=== PATIENT | female | born 2005 | race Caucasian/White ===

== ENCOUNTER 2023-02-25 08:34 | Emergency (ER) | payer OTHER, SELFPAY ==
[2023-02-25 08:42] VITALS: BP 122/77; PULSE 81; RESP 16; TEMP 36.8; O2SAT 99
--- NOTE | 2023-02-25 08:48 | ED.GENADULT ---
HPI - General Adult General Chief complaint: Upper Respiratory Infection Stated complaint: Fever/Cough/Rash Source: patient, RN notes reviewed and old records reviewed Mode of arrival: ambulatory Limitations: no limitations History of Present Illness HPI narrative: 17-year-old female presents to [facility] with complaint of sore throat and fever that started this a.m. Patient also concerned for rash that is intermittent. Patient states gets swelling and red dumont and bruising on legs for the last several weeks. Patient was seen in another urgent care and told to follow up and take Benadryl. Patient states is not improving. Patient has no rash at this time. MD complaint: sore throat Onset (ago): day(s) (1) Related Data Home Medications Medication Instructions Recorded Confirmed No Home Medications 02/25/23 02/25/23 Allergies Allergy/AdvReac Type Severity Reaction Status Date / Time No Known Allergies Allergy Unverified 06/11/16 19:32 Review of Systems Constitutional: Constitutional: Reports no additional constitutional complaints, Denies body ache(s), Denies chills, Denies fatigue, Reports fever(s) and Denies headache(s) Eyes: Eyes: Reports no additional eye complaints and Denies blurry vision ENT: Reports system reviewed and no additional complaints, except as documented, Denies vertigo, Denies dizziness, Denies ear discharge, Denies otalgia, Denies facial pain, Denies headache(s), Denies nasal congestion, Denies nasal discharge, Denies sinus pain, Denies sinus pressure and Reports sore throat Cardiovascular: Cardiovascular: Reports no additional cardiovascular complaints, Denies chest pain, Denies chest pain at rest, Denies rapid heart rate and Denies dyspnea Respiratory: Respiratory: Reports no additional respiratory complaints, Denies chest congestion, Denies cough, Denies pain on inspiration, Denies pain with cough and Denies dyspnea Gastrointestinal: Gastrointestinal: Denies abdominal pain, Denies diarrhea, Denies nausea and Denies vomiting Integumentary/Breasts: Skin/Breast: Reports rash Comments: Rash not present at this visit. Neurologic: Reports system reviewed and no additional complaints, except as documented, Denies vertigo, Denies dizziness and Denies headache(s) Endocrine: Endocrine: Denies fatigue PMFSH Comments At the time of my signature, I reviewed and agree with the nursing past medical, surgical, social, and family history. There is no relevant family history pertinent to the patient complaint. Exam Const: General: cooperative, healthy appearing, no acute distress and well nourished Nutritional Appearance: well nourished Orientation/consciousness: patient oriented x3 Limitations: no limitations HENMT: Head: normal to inspection and normocephalic Ears: external ears normal, TM's normal bilaterally, mastoids normal and Abnormal EAC present Face/Nose/Sinus: normal facial exam Face and sinus: normal facial exam Mouth: Yes Normal oral and palatal mucosa present, Yes oropharynx normal and Yes moist mucous membranes Throat: tonsils normal, uvula midline, posterior oropharynx abnormal erythema and no uvular edema Eyes: General: appearance normal, both eyes and all related structures Sclera: sclerae normal Pupils: Equal, round and reactive pupils present Resp: Effort & Inspection: normal respiratory effort, able to speak in complete sentences, no audible wheezes, no cough, no respiratory distress and no retractions Auscultation: clear to auscultation bilaterally, no crackles, no rales, no rhonchi and no wheezes Cardio: Rate: regular rate Rhythm: regular rhythm Skin: General skin exam: normal color and no rashes or lesions noted Neuro: General: patient oriented x3 Cranial nerves: Yes Equal, round and reactive pupils present Psych: Appearance: grossly normal Mental Status: mental status grossly normal Speech and movement: Normal speech and movement present Affect: normal aff
== END 2023-02-25 09:07 | disposition home or self-care (01) ==
PROVIDERS: Emergency Provider Registered Nurse; PCP Family Medicine
DX: J02.9 Acute pharyngitis, unspecified (principal)
CPT/HCPCS: 87081; 87880; 99213; G0463

== ENCOUNTER 2025-01-02 13:22 | Emergency (ER) | payer OTHER, SELFPAY ==
[2025-01-02 13:25] VITALS: BP 112/67; PULSE 69; RESP 20; TEMP 37; O2SAT 100
--- NOTE | 2025-01-02 13:29 | ED.URI ---
HPI - URI/Sore Throat General Chief Complaint: Upper Respiratory Infection Stated Complaint: URI symptoms Time Seen by Provider: 01/02/25 13:32 Source: patient and RN notes reviewed Mode of arrival: ambulatory Limitations: no limitations History of Present Illness HPI Narrative: 19-year-old female presents with concern of for one-month history of sinus drainage, sore throat, congestion, headache. She reports she has been taking [id number] medications without relief. She denies fever, body aches, chills, sweats. MD elicited complaint: sore throat, rhinorrhea and nasal congestion Related Data Allergies Allergy/AdvReac Type Severity Reaction Status Date / Time No Known Allergies Allergy Verified 01/02/25 13:32 Review of Systems Review of Systems: CONSTITUTIONAL: Denies malaise, chills, sweats, or fever. EYES: Denies visual changes, redness, or discharge. ENT: Reports rhinorrhea, congestion, otalgia and sore throat. CARDIOVASCULAR: Denies chest pain, palpitations, or edema. RESPIRATORY: Denies cough. Denies dyspnea. GASTROINTESTINAL: Denies abdominal pain, nausea, vomiting, diarrhea SKIN: Denies rash or itching. MUSCULOSKELETAL: Denies myalgia. NEUROLOGIC: Reports headache. All systems reviewed & are unremarkable except as noted in HPI and below PMFSH Comments At time of signature, agree with nursing past medical, surgical, social and family history. There is no relevant family history pertinent to the presenting complaint Exam Narrative: GENERAL: Well-appearing, well-nourished, and in no acute distress. HEAD: Normocephalic EYES: PERRLA, conjunctivae clear ENT: Nares clear, turbinates edematous and erythematous. Mucous membranes moist. TM pearly lei with dull light reflex bilaterally; no tragal tenderness. Oropharynx not erythematous without lesions. Tonsils not enlarged and without exudate, no drooling, no hoarseness, no trismus, uvula midline. NECK: Supple. No lymphadenopathy CHEST: Clear to auscultation, breath sounds equal. No wheezing, rhonchi, rales, or stridor. No respiratory distress, speaks in full sentences. HEART: Regular rate and rhythm. No murmur heard. SKIN: Warm, dry, no rash. NEURO: Alert and oriented x3. PSYCH: Normal mood and affect Course Course Emergency Course: Patient is aware of diagnosis, understands and agrees to treatment plan. Anticipatory guidance given. Patient agrees to follow-up as directed and is aware of reasons to seek care at the emergency department. Portions of this record may have been created with voice recognition software Level of Care: Express Care Visit Vital Signs Vital signs: Reviewed. MDM - URI/Sore Throat MDM Narrative Medical decision making narrative: Differential diagnosis considered: Peoples virus, strep pharyngitis, allergic rhinitis, upper respiratory tract infection, sinusitis, rhinosinusitis, nasopharyngitis. viral pharyngitis, otitis media, otitis externa, pneumonia, bronchitis, viral cough syndrome, viral syndrome, and influenza. Exam findings show no acute concerns or changes; patient is non-toxic appearing and is in no distress. Patient is appropriate for outpatient treatment and follow-up. Lab Data Attestation: I reviewed the patient's lab results. Critical Care Time Critical Care Time Critical Care Time: No Discharge Plan Discharge Clinical Impression: Sinusitis Patient Disposition: Home Condition: Stable Instructions: Antibiotic Form, Sinusitis (ED) Additional Instructions: Take medication as prescribed Recommend antihistamine such as Benadryl at night time and Zyrtec or Lali during the day Also, recommend symptomatic treatment includes: rest, fluids, and increase humidity of the air at home. Recommend Acetaminophen as directed on the bottle to reduce fever, pain, headache. Avoid smoking/second-hand smoke. Please schedule a follow-up visit with your personal physician for further evaluation and treatment within 3-5days. If your symptoms persist, change or worsen significantly before you can contact your personal physician then please, without delay, go to the emergency department for further evaluation. Patient Language: Hebrew Prescriptions: New methylprednisolone [Medrol (Matias)] 4 mg tablets,dose pack See Rx Instructions .ROUTE .COMPLEX Qty: 21 0RF Rx Instructions: orally per package directions amoxicillin-pot clavulanate 875-125 mg tablet 1 tablet PO Q12H 10 Days Qty: 20 0RF Follow-up/Referrals: UNKNOWN,DOCTOR [Primary Care Provider] Time of Disposition: 13:37
--- OUTSIDE RECORDS SUMMARY | 2025-01-02 14:46 | XMS_ITS | Clinical Summary ---
Author Organization [facility] Address [address] [place] [address] Care Team Providers Care Extension Service Supervisor Name Role Phone Liliane Egan MD Primary Care Provider [phone] Source Comments [facility] [employer],non-owned Affiliates and Associated Physician Practices is amultiple site organization consisting of ambulatory clinics and hospital sitesin [place], [place], [place] and [place]. This disclosure is being madepursuant to the Care Everywhere program and may not contain all information available regarding this patient. Last updated 17.[facility] [employer] Allergies No known active allergies Medications * Be aware that medications may not be up to date on this document. Alwaysverify current medications with the patient. ibuprofen (MOTRIN) 200 MG tablet Take 400 mg by mouth every 6 hours as needed for Pain Active Active Problems Problem Noted Date Diagnosed Date Injury of finger of left hand 07/02/2016 Social History Tobacco Use Types Packs/Day Years Used Date Smoking Tobacco: Never Assessed Comments Unknown Sex and Gender Information Value Date Recorded Sex Assigned at Not on file Legal Sex Female 5:43 AM APPEALS MANAGER Gender Identity Not on file Sexual Orientation Not on file Plan of Treatment Health Maintenance Due Date Last Done Comments HIV SCREENING 10/07/2018 HPV VACCINE (1 - 3-dose series) 10/07/2018 CHLAMYDIA/GONORRHEA SCREENING 2019 MENINGOCOCCAL (Group B) VACC INE SHARED DECISION-MAKING (1 of 2 - Standard) 2019 HEPATITIS C SCREENING 10/03/2021 DTAP/TDAP/TD VACCINES (1 - Tdap) 10/07/2022 HEPATITIS B VACCINE (1 of 3 - 19+ 3-dose series) 10/07/2022 DEPRESSION SCREENING 03/07/2024 COVID-19 VACCINE (1 - 2023-2 5 season) 2024 INFLUENZA VACCINE (#1) 2024 ZOSTER VACCINE (1 of 2) 10/07/2053 HIB VACCINE Aged Out No longer eligi ble based on patient's age to complete this topic MENINGOCOCCAL GROUPS A/C/Y/W VACCINE Aged Out No longer eligible b ased on patient's age to complete this topic PNEUMOCOCCAL VACCINE Aged Out No long er eligible based on patient's age to complete this topic Insurance AETNA AETNA Care Teams Extension Service Supervisor Relationship Specialty Start Date End Date Liliane Egan MD PCP - General Pediatrics 06/15/16
--- OUTSIDE RECORDS SUMMARY | 2025-01-02 14:46 | XMS_ITS | Clinical Summary ---
Author Organization [facility] Address [address] [place] [address] Phone Care Team Providers Care Supervisor White Sugar Name Role Phone Provider, Not On File Primary Care Provider Unav ailable Allergies No known active allergies Medications HYDROcodone-aceta minophen (NORCO) 5-325 MG TabletIndications :S/P medial meniscectomy of left knee Take 1-2 Tablets by mouth every 4 hours as needed for Moderate or more severe pain (pain). 13 Tablet 2 Active Active Problems No known active problems Family History Medical History Relation Name Comments Cancer Father THYROID No Known Problems Mother Relation Name Status Comments Father Mother Social History Tobacco Use Types Packs/Day Years Used Date Smoking Tobacco: Never Smokeless Tobacco: Never Alcohol Use Standard Drinks/Week Comments Never 0 (1 standard drink = 0.6 oz pur e alcohol) Comments Unknown Sex and Gender Information Value Date Recorded Sex Assigned at Not on file Legal Sex Female 10:17 PM CDT Gender Identity Not on file Sexual Orientation Not on file Last Filed Vital Signs Vital Sign Reading Time Taken Comments Blood Pressure 111/58 04/01/2021 9:25 AM TELEGRAPHIC TYPEWRITER INSTALLER Pulse 60 04/01/2021 9:25 AM TELEGRAPHIC TYPEWRITER INSTALLER Temperature 36.4 C (97.5 F) 04/01/2021 9:25 AM TELEGRAPHIC TYPEWRITER INSTALLER Respiratory Rate 16 04/01/2021 9:25 AM TELEGRAPHIC TYPEWRITER INSTALLER Oxygen Saturation 100% 04/01/2021 9:25 AM TELEGRAPHIC TYPEWRITER INSTALLER Inhaled Oxygen Concentration - - Weight 65.8 kg (145 lb) 03/30/2021 3:00 PM TELEGRAPHIC TYPEWRITER INSTALLER Height 168.9 cm (5' 6.5) 03/30/2021 3:00 PM TELEGRAPHIC TYPEWRITER INSTALLER Body Mass Index 23.05 03/30/2021 3:00 PM TELEGRAPHIC TYPEWRITER INSTALLER Plan of Treatment Health Maintenance Due Date Last Done Comments Hepatitis C Virus (HCV) Screening 2003 TdaP Immunization 2003 Human Papillomavirus (HPV) Immunization (1 - 3-dose series) 10/07/2018 Meningococcal B Immunization (1 of 2 - Standard) 2019 Influenza Immunization (#1) 2024 SARS-COV-2 Immunization (3 - season) 2024 11/12/2020, 10/21/2020 Respiratory Syncytial Virus (RSV) Immunization (Adult) (1 - 1-dose 75+ series) 10/07/2078 Hepatitis B Immunization Completed , 02/26/2004, 2003, Additional history exists Polio (IPV) Immunization Discontinued , 02/26/2004, 2003 Measles Mumps Rubella (MMR) Immunization Discontinued 10/12/2004 Varicella Immunization Discontinued 10/12/2004 DTaP/Tdap/Td Immunization Discontinued 2004, 04/27/2004, 02/26/2004, Additional history exists Pneumococcal Immunization Combined Aged Out 01/29/2005, 08/06/2004, 04/27/2004, Additional history exists No longer eligible based on patient's age to complete this topic Meningococcal Immunization (ACWY) Completed 11/19/2020, 10/11/2017 Rotavirus Immunization Aged Out No lo nger eligible based on patient's age to complete this topic Insurance AETNA SOI A[employer] AETNA SOI Care Teams Supervisor White Sugar Relationship Specialty Start Date End Date Provider, Not On File [place] PCP - General 03/31/21
--- OUTSIDE RECORDS SUMMARY | 2025-01-02 14:46 | XMS_ITS | Clinical Summary ---
Author Organization [facility] Address [address] [place] [address] Care Team Providers Care Display Manager Name Role Phone Anyi Celestin MD Primary Care Provider + Allergies No known active allergies Medications ibuprofen 200 mg tab/cap Take 1 tablet/caps ule (200 mg total) by mouth every 6 (six) hours as needed for pain Active Active Problems Problem Noted Date Diagnosed Date Sore throat 02/15/2023 Assessment & Plan (02/15/2023 1:04 PM SWATCH PASTER): Rapid strep negative, throat culture pending Warm salt water gargles Tylenol (acetaminophen) or Advil/Motin (ibuprofen) as needed per package directions for aches/pains. Frequent warm/cool liquids Rash 02/15/2023 Assessment & Plan (02/15/2023 1:06 PM SWATCH PASTER): Rash to torso presentation consistent with tinea versicolor Will treat with ketoconazole shampoo Rash to left leg, unclear etiology Zyrtec daily, pepcid 20 mg bid Ice, elevation F/u with dermatology if rash persists or worsens Internal derangement of left knee 02/04/2021 Left knee pain 02/04/2021 Surgical History Surgery Date Site/Laterality Comments CLUB FOOT RELEASE KNEE ARTHROSCOPY Medical History Medical History Date Comments COVID-19 virus infection Family History Medical History Relation Name Comments Hypertension Father No Known Problems Mother Relation Name Status Comments Father Alive Mother Alive Social History Tobacco Use Types Packs/Day Years Used Date Smoking Tobacco: Never Smokeless Tobacco: Never Tobacco Cessation:Counseling Given: Not Answered Alcohol Use Standard Drinks/Week Comments Never 0 (1 standard drink = 0.6 oz pur e alcohol) AUDIT-C Answer Date Recorded Q1: How often do you have a drink containing alc ohol? Never 09/15/2019 Average Number of Drinks Not on file 020 Frequency of Binge Drinking Not on file 09/04 Personal Safety Answer Date Recorded Getting School Help Needed Not on file 02/14 Comments Unknown Sex and Gender Information Value Date Recorded Sex Assigned at Not on file Legal Sex Female 8:45 AM SWATCH PASTER Gender Identity Not on file Sexual Orientation Not on file Obstetrics History Last Filed Vital Signs Vital Sign Reading Time Taken Comments Blood Pressure 118/72 02/15/2023 12:32 PM SWATCH PASTER Pulse 61 02/15/2023 12:32 PM SWATCH PASTER Temperature 37.1 C (98.7 F) 02/15/2023 12:32 PM SWATCH PASTER Respiratory Rate 16 02/15/2023 12:32 PM SWATCH PASTER Oxygen Saturation 99% 02/15/2023 12:32 PM SWATCH PASTER Inhaled Oxygen Concentration - - Weight 68 kg (150 lb) 02/15/2023 12:32 PM SWATCH PASTER Height 167.6 cm (5' 6) 02/15/2023 12:32 PM SWATCH PASTER Body Mass Index 24.21 02/15/2023 12:32 PM SWATCH PASTER Plan of Treatment Health Maintenance Due Date Last Done Comments Cervical Cancer Screening 2003 Depression Screening 2003 Hepatitis C Screening 2003 Varicella Vaccines (2 of 2 - 2-dose childhood series) 2007 10/12/2004 DTaP/Tdap/Td Vaccine (5 - Tdap) 10/07/2014 01/29/2005, 04/27/2004, 02/26/2004, Additional history exists HPV Vaccines (1 - 3-dose series) 10/07/2018 Meningococcal B Vaccine (1 o f 2 - Standard) 2019 Regular Well Visit/Exam 18-64 10/07/2021 Covid-19 Vaccine (3 - 2024-2 6 season) 2024 11/12/2020, 10/21/2020 Influenza Vaccine (#1) 2024 Hepatitis B Screening Completed 04/27/2004 , 02/26/2004, 2003, Additional history exists Pneumococcal vaccine <65 Completed 005, 08/06/2004, 04/27/2004, Additional history exists Meningococcal Vaccine Completed 11/19/2020, 018 Insurance [facility] [facility] Care Teams Display Manager Relationship Specialty Start Date End Date Anyi Celestin MD [address] [place] [address] [place] [address] PCP - General Family Medicine 09/15/19
[2025-01-02 18:52] LABS: EDSTREPNEGPOS1 Negative (Negative)
== END 2025-01-02 13:39 | disposition home or self-care (01) ==
PROVIDERS: Emergency Provider Nurse Practitioner
DX: J32.9 Chronic sinusitis, unspecified (principal)
CPT/HCPCS: 87880; 99213; G0463